=== PATIENT | female | born 2000 | race Caucasian/White ===

== ENCOUNTER 2022-04-19 11:50 | Emergency (ER) | payer BC ==
[2022-04-19] MEDS ORDERED: Ondansetron 4 MG Tab.DIS PO ONE (12:01)
[2022-04-19] MEDS ORDERED: Hyoscyamine 0.125 MG Tab.SL SL ONE (12:52)
[2022-04-19] MEDS ORDERED: Acetaminophen 325 MG Tab PO ONE (12:53)
== END 2022-04-19 14:35 | disposition home or self-care (01) ==
LOC: FB.ED 11:50
DX: R10.32 Left lower quadrant pain (principal); R11.2 Nausea with vomiting, unspecified
CPT/HCPCS: 99282; 99283; A9270; Q0162